=== PATIENT | male | born 1990 | race Caucasian/White ===

== ENCOUNTER 2022-03-24 20:21 | Emergency (ER) | payer OTHER, SELFPAY ==
[2022-03-24] VITALS (10 sets, daily range): BP systolic 102–156; BP diastolic 51–86; PULSE 115; RESP 18; TEMP 36.6; O2SAT 90–100
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
[2022-03-24] MEDS: IBUPROFEN 400 MG TABLET 800 MG PO (21:03)
[2022-03-24] MEDS: ACETAMINOPHEN 500 MG TABLET 1000 MG PO (21:04)
[2022-03-24] MEDS: TETANUS,DIPHTHERIA,AC PERTUSSIS ADULT 0.5 ML (ADACEL) IM (21:04)
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
[2022-03-24 22:08] LABS: SARS-CoV-2 RNA PCR Negative (Negative)
[2022-03-24] MEDS: AMPICILLIN SULB 3 GM/NS 100 ML 3 GM/100 ML VIAL IVPB (22:18)
[2022-03-24] MEDS: SODIUM CHLORIDE 0.9% IV 1,000 ML 999 ML IV CONT (22:19)
[2022-03-24 22:22] LABS: Hematocrit 41.8 % (40.0-54.0); Hemoglobin 13.7 g/dL (14.0-18.0); Mean Corpuscular HGB Conc 32.8 g/dL (32.0-36.0); Mean Corpuscular Hemoglobin 29.2 pg (27.0-31.0); Mean Corpuscular Volume 89.1 fL (78.0-102.0); Mean Platelet Volume 9.2 fl (8.7-11.0); Platelet Count Result 385 K/mm3 (150-420); Red Blood Count 4.69 M/mm3 (4.70-6.10); Red Cell Distribution Width 12.5 % (11.6-14.4)
[2022-03-24 22:30] LABS: White Blood Count 20.7 K/mm3 (4.8-10.8)
[2022-03-24 22:33] LABS: Alanine Aminotransferase 129 U/L (16-63); Alkaline Phosphatase 121 U/L (46-116); Amylase 25 U/L (25-115); Anion Gap 13 mmol/L (8-16); Aspartate Amino Transferase 119 U/L (15-37); Bilirubin,Total 0.3 mg/dL (0.00-1.00); Blood Urea Nitrogen 10 mg/dL (7-18); Calcium 8.4 mg/dL (8.5-10.1); Carbon Dioxide 22 mmol/L (21-32); Chloride 104 mmol/L (98-108); Estimated Glomerular Filt Rate > 60; Glucose 133 mg/dL (70-99); Lipase 69 U/L (73-393); Osmolality Calculated 289 mOsm/kg (285-295); Potassium 3.3 mmol/L (3.5-5.1); Sodium 139 mmol/L (136-145); Total Protein 7.8 g/dL (6.4-8.2)
[2022-03-24 22:34] LABS: Ethanol 219 mg/dL (0-6)
[2022-03-24 22:40] LABS: Add Urine Microscopic? YES; Appearance Urine Clear (Clear); Bilirubin Urine Negative (Negative); Blood Urine 3+ (Negative); Color Urine Light Yellow (Yellow); Glucose Urine UA Negative (Negative); Ketones Urine Negative (Negative); Leukocyte Esterase Ur Negative LEU/UL (Negative); Nitrate Urine Negative (Negative); Protein Urine 1+ (Negative); Urobilinogen Urine 0.2 mg/dL (0.2-1.0)
[2022-03-24 22:46] LABS: Amphetamine Screen Urine Negative (Negative); Barbiturate Screen Urine Negative (Negative); Benzodiazepines Screen Urine Negative (Negative); Cannabinoid Screen Urine Negative (Negative); Cocaine Screen Urine Negative (Negative); Methadone Screen Urine Negative (Negative); Opiate Screen Urine Negative (Negative); Phencyclidine Screen Urine Negative (Negative)
[2022-03-24 23:11] LABS: Amorphous Sediment Urine Few; Bacteria Urine Trace /hpf; Mucus Urine Few /lpf
[2022-03-24] MEDS: POTASSIUM BICARBONATE 25 MEQ TABEF 50 MEQ PO (23:16)
[2022-03-24 23:21] LABS: Band Neutrophils Percent 0 % (0-6); Basophils Percent Manual 1 % (0-1); Eosinophils Percent Manual 0 % (1-6); Lymphocytes Absolute Manual 3.72 K/mm3 (1.1-4.5); Lymphocytes Percent Manual 18 % (18-44); Monocytes Absolute Manual 0.62 K/mm3 (0.1-0.90); Monocytes Percent Manual 3 % (3-9); Neutrophils Absolute Manual 16.14 K/mm3 (1.3-6.7); Neutrophils Percent Manual 78 % (46-73); Platelet Estimate Adequate (Adequate); Total Cells Counted 100
[2022-03-25] VITALS: O2SAT 95
[2022-03-25 00:01] VITALS: BP 138/85; O2SAT 98
== END 2022-03-25 00:30 | disposition home or self-care (01) ==
PROVIDERS: Emergency Provider Emergency Medicine
DX: S02.80XA Fracture of other specified skull and facial bones, unspecified side, initial encounter for closed fracture (principal); T14.8XXA Other injury of unspecified body region, initial encounter; F10.129 Alcohol abuse with intoxication, unspecified; D72.829 Elevated white blood cell count, unspecified; V86.59XA Driver of other special all-terrain or other off-road motor vehicle injured in nontraffic accident, initial encounter; Z20.822 Contact with and (suspected) exposure to COVID-19
CPT/HCPCS: 36415; 70450; 70486; 71045; 72125; 74177; 80053; 80307; 81001; 82150; 83690; 85025; 90471; 90715; 96361; 96374; 99284; A9270; C9803; J0295; J7030; Q9967; U0003; U0005

== ENCOUNTER 2022-04-02 10:27 | Outpatient (CLI) | payer OTHER, SELFPAY ==
[2022-04-02 10:45] LABS: Hematocrit 42.5 % (40.0-54.0); Hemoglobin 13.9 g/dL (14.0-18.0); Mean Corpuscular HGB Conc 32.7 g/dL (32.0-36.0); Mean Corpuscular Hemoglobin 29.3 pg (27.0-31.0); Mean Corpuscular Volume 89.5 fL (78.0-102.0); Mean Platelet Volume 9.2 fl (8.7-11.0); Platelet Count Result 417 K/mm3 (150-420); Red Blood Count 4.75 M/mm3 (4.70-6.10); Red Cell Distribution Width 12.5 % (11.6-14.4); White Blood Count 7.4 K/mm3 (4.8-10.8)
[2022-04-02 11:00] LABS: Alanine Aminotransferase 62 U/L (16-63); Albumin Level 3.9 g/dL (3.4-5.0); Alkaline Phosphatase 119 U/L (46-116); Anion Gap 11 mmol/L (8-16); Aspartate Amino Transferase 32 U/L (15-37); Bilirubin,Total 0.3 mg/dL (0.00-1.00); Blood Urea Nitrogen 9 mg/dL (7-18); Carbon Dioxide 26 mmol/L (21-32); Chloride 104 mmol/L (98-108); Estimated Glomerular Filt Rate > 60; Glucose 112 mg/dL (70-99); Osmolality Calculated 291 mOsm/kg (285-295); Potassium 4.2 mmol/L (3.5-5.1); Sodium 141 mmol/L (136-145)
[2022-04-02 12:17] LABS: Add Urine Microscopic? NO; Appearance Urine Clear (Clear); Bilirubin Urine Negative (Negative); Blood Urine Negative (Negative); Color Urine Light Yellow (Yellow); Glucose Urine UA Negative (Negative); Ketones Urine Negative (Negative); Leukocyte Esterase Ur Negative (Negative); Nitrate Urine Negative (Negative); Protein Urine Negative (Negative); Specific Grav Ur 1.015 (1.010-1.020); Urobilinogen Urine 0.2 mg/dL (0.2-1.0)
== END 2022-04-02 10:28 | disposition home or self-care (01) ==
LOC: CHSLAB 10:29
PROVIDERS: PCP Family Medicine; Visit Provider Family Medicine
DX: R00.2 Palpitations (principal); R03.0 Elevated blood-pressure reading, without diagnosis of hypertension; V86.99XA Unspecified occupant of other special all-terrain or other off-road motor vehicle injured in nontraffic accident, initial encounter
CPT/HCPCS: 36415; 80053; 81003; 85027